=== PATIENT | female | born 1955 | race Caucasian/White ===

== ENCOUNTER → 2025-04-07 08:54 | Outpatient (CLI) | payer MEDICARE, OTHER, SELFPAY ==
--- NOTE | 2025-04-07 09:01 | DI.RAD.S_ITS ---
PROCEDURE: XR HIP LT 2V INDICATIONS: Left hip pain TECHNIQUE: A total of 2 views of the hip were acquired. COMPARISON: None. FINDINGS: Bones: No fractures or dislocations. No suspicious bony lesions. The visualized pelvic ring appears intact. Bilateral moderate to moderately severe hip joint osteoarthritis is present, virtually symmetric. Soft tissues: No suspicious soft tissue calcifications or masses. IMPRESSION: Symmetric moderate to moderately severe hip joint osteoarthritis bilaterally. Dictated by: Hadley Rose M.D. on 04/07/2025 at 13:20 Approved by: Hadley Rose M.D. on 04/07/2025 at 13:21
== END ==
PROVIDERS: PCP Nurse Practitioner; Referring Provider Orthopaedic Surgery Adult Reconstructive Orthopaedic Surgery; Visit Provider Orthopaedic Surgery Adult Reconstructive Orthopaedic Surgery
DX: M16.12 Unilateral primary osteoarthritis, left hip (principal); M25.552 Pain in left hip
CPT/HCPCS: 73502; 99213